=== PATIENT | female | born 1980 | race Caucasian/White ===

== ENCOUNTER → 2023-02-01 16:12 | Outpatient (CLI) | payer OTHER, SELFPAY ==
--- NOTE | ~2023-02-01 | XR_ITS ---
AP and oblique views of the SI joints MEDICAL HISTORY: Sacrococcygeal disorder FINDINGS: Bilateral SI joints are intact. Visualized hip joints are intact. No erosive or sclerotic c hange. No degenerative change. Soft tissues are unremarkable. IMPRESSION: Unremarkable exam. Reviewed, dictated and finalized at location . IMPRESSION: Unremarkable exam.
== END ==
PROVIDERS: PCP Family Medicine
DX: M53.3 Sacrococcygeal disorders, not elsewhere classified (principal)
CPT/HCPCS: 72202

== ENCOUNTER 2024-04-26 08:16 | Emergency (ER) | payer OTHER, SELFPAY ==
--- NOTE | 2024-04-26 08:18 | ED.EXTPRO ---
HPI - Extremity Problem General Chief complaint: Extremity Problem,Nontraumatic Stated complaint: Shoulder Pain and Arm Numbness Time Seen by Provider: 04/26/24 08:17 Source: patient Mode of arrival: ambulatory Limitations: no limitations History of Present Illness HPI Narrative: Patient is a 43-year-old female who presents with right shoulder pain that has increased substantially since Tuesday. States it originally started 2-3 weeks ago intermittently but now is constant. Also reports intermittent numbness and tingling to arm. 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 States she still able to move shoulder in all directions but it is painful. Patient has been taking Tylenol ibuprofen with no relief. Patient called PCP and was not able to get in until Tuesday. 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 Denies any fever, chills, nausea, vomiting, diarrhea. Related Data Home Medications Medication Instructions Recorded Confirmed multivitamin 1 tablet PO DAILY 05/08/20 07/01/23 norgestimate-ethinyl estradiol 1 tablet PO DAILY 05/08/20 07/01/23 0.18 mg/0.215mg/0.25mg-35 mcg(28)tablet (Ortho Tri-Cyclen (28)) apple cider vinegar 300 mg tablet 300 mg PO DIRECTED 06/30/22 07/01/23 fluorometholone 0.1 % eye 1 drp ophthalmic (eye) DIRECTED 04/26/24 drops,suspension Allergies Allergy/AdvReac Type Severity Reaction Status Date / Time No Known Allergies Allergy Verified 04/26/24 08:28 Review of Systems Review of Systems: All systems reviewed & are unremarkable except as noted in HPI and below Constitutional: Constitutional: Denies body ache(s), Denies chills, Denies fatigue, Denies fever(s), Denies headache(s), Denies malaise and Denies weakness Eyes: Eyes: Denies blurry vision, Denies irritation and Denies loss of vision ENT: Denies otalgia, Denies headache(s), Denies nasal discharge, Denies sinus pain and Denies sore throat Cardiovascular: Cardiovascular: Denies chest pain, Denies irregular heart rhythm and Denies dyspnea Respiratory: Respiratory: Denies dyspnea Gastrointestinal: Gastrointestinal: Denies abdominal pain, Denies melena, Denies hematochezia, Denies diarrhea, Denies nausea and Denies vomiting Musculoskeletal: Musculoskeletal: Denies back pain, Denies myalgias, Reports arthralgias, Reports numbness and Reports tingling Integumentary/Breasts: Skin/Breast: Denies pruritus and Denies rash Neurologic: Denies headache(s), Denies loss of vision and Denies weakness Psychiatric: Psychiatric: Reports no additional psychiatric complaints Endocrine: Endocrine: Denies fatigue PMFSH Past Medical History Medical History Arthritis Body mass index [BMI] 22.0-22.9, adult Family History Family History Other Carcinoma of colon Family history of coronary artery disease Family history of lung cancer Family history of malignant neoplasm of kidney Hypertension Social History Social History Smoking status: Former smoker Alcohol intake: never Comments At time of signature, agree with nursing past medical, surgical, social and family history. There is no relevant family history pertinent to the presenting complaint. Exam Const: General: cooperative, healthy appearing, comfortable, no acute distress and well nourished Nutritional Appearance: well nourished Orientation/consciousness: patient oriented x3 Limitations: no limitations HENMT: Head: normal to inspection, normocephalic and atraumatic Ears: hearing grossly normal bilaterally and external ears normal Face/Nose/Sinus: Normal external nose present, normal facial exam and face symmetric Face and sinus: normal facial exam and face symmetric Mouth: Yes lip normal Eyes: General: appearanc
[2024-04-26 08:25] VITALS: BP 144/105; PULSE 101; RESP 20; TEMP 37; O2SAT 100
== END 2024-04-26 09:10 | disposition short-term general hospital (02) ==
PROVIDERS: Emergency Provider Nurse Practitioner Family; PCP Family Medicine
DX: M25.511 Pain in right shoulder (principal); R20.0 Anesthesia of skin; R20.2 Paresthesia of skin; Z87.891 Personal history of nicotine dependence; M19.90 Unspecified osteoarthritis, unspecified site
CPT/HCPCS: 99215; G0463

== ENCOUNTER 2024-04-26 09:33 | Emergency (ER) | payer OTHER, SELFPAY ==
--- NOTE | ~2024-04-26 | XR_ITS ---
Right Shoulder Technique: AP and scapular Y views were obtained. Clinical History: Pain Findings: No fracture or dislocation is seen. Osseous alignment is anatomic. The glenohumeral and acr omioclavicular joint spaces are preserved. Soft tissues are unremarkable. Impression: Unremarkable right shoulder radiographs. Reviewed, dictated and finalized at [facility]. Impression: Unremarkable right shoulder radiographs.
[2024-04-26 09:47] VITALS: BP 157/89; PULSE 79; RESP 16; TEMP 36.7; O2SAT 100
--- NOTE | 2024-04-26 10:16 | ED.EXTPRO ---
HPI - Extremity Problem General Chief complaint: Extremity Problem,Nontraumatic Stated complaint: right arm numbness X2 days Time Seen by Provider: 04/26/24 09:45 Source: patient Mode of arrival: ambulatory Limitations: no limitations History of Present Illness HPI Narrative: 43-year-old otherwise healthy here with a complaint of right shoulder pain for past 2 days. She denies any trauma or lifting any heavy objects. Patient states pain diarrhea starts in her shoulder radiating to her arm. She denies any neck pain my Onset (ago): day(s) (2) Pain Consistency: constant Location: right Quality: aching Radiation: distal Relieving factors: nothing Exacerbating factors: nothing Associated symptoms: denies other symptoms Related Data Home Medications Medication Instructions Recorded Confirmed multivitamin 1 tablet PO DAILY 05/08/20 07/01/23 norgestimate-ethinyl estradiol 1 tablet PO DAILY 05/08/20 07/01/23 0.18 mg/0.215mg/0.25mg-35 mcg(28)tablet (Ortho Tri-Cyclen (28)) apple cider vinegar 300 mg tablet 300 mg PO DIRECTED 06/30/22 07/01/23 fluorometholone 0.1 % eye 1 drp ophthalmic (eye) DIRECTED 04/26/24 drops,suspension Allergies Allergy/AdvReac Type Severity Reaction Status Date / Time No Known Allergies Allergy Verified 04/26/24 09:33 Review of Systems Review of Systems: All systems reviewed & are unremarkable except as noted in HPI and below Constitutional: Constitutional: Reports no additional constitutional complaints Eyes: Eyes: Reports no additional eye complaints ENT: Reports system reviewed and no additional complaints, except as documented Cardiovascular: Cardiovascular: Reports no additional cardiovascular complaints Respiratory: Respiratory: Reports no additional respiratory complaints Gastrointestinal: Gastrointestinal: Reports no additional gastrointestinal complaints Musculoskeletal: Musculoskeletal: Reports as per HPI Neurologic: Reports system reviewed and no additional complaints, except as documented Endocrine: Endocrine: Reports no additional endocrine complaints Hematologic/Lymphatic: Hematologic/Lymphatic: Reports no additional hematologic/lymphatic complaints [facility] Past Medical History Medical History Arthritis Body mass index [BMI] 22.0-22.9, adult Family History Family History Other Carcinoma of colon Family history of coronary artery disease Family history of lung cancer Family history of malignant neoplasm of kidney Hypertension Social History Social History Smoking status: Former smoker Alcohol intake: never Exam Narrative: GENERAL: Well-appearing, well-nourished, and in no acute distress. She is tearful HEAD: Normocephalic, atraumatic. EYES: PERRLA and EOMI. ENT: Nares clear, no rhinorrhea or epistaxis. Mucous membranes moist. NECK: Supple. No cervical point tenderness CHEST: Clear to auscultation. No respiratory distress. HEART: Regular rate and rhythm. No murmur heard. Normal peripheral pulses. ABDOMEN: Soft, nontender, nondistended, normal active bowel sounds. EXTREMITIES: Normal range of motion. No edema. Painful ROM of the right shoulder SKIN: Warm, dry, no rash. NEURO: No focal deficits. Alert and oriented x3. PSYCH: Normal mood and affect. Course Course Emergency Course: Notified patient about I x-ray findings. Advised her to take pain medication as prescribed, follow-up with the orthopedic Vital Signs Vital signs: Vital Signs Temperature 36.7 C 04/26/24 09:47 Pulse Rate 79 04/26/24 09:47 Respiratory Rate 16 04/26/24 09:47 Blood Pressure 157/89 H 04/26/24 09:47 Pulse Oximetry 100 04/26/24 09:47 Oxygen Delivery Room Air 04/26/24 09:47 Temperature 36.7 C 04/26/24 09:47 Pulse Rate 79 04/26/24 09:47 Respiratory Rate 16
[2024-04-26] MEDS: KETOROLAC 30 MG/ML VIAL (*BKC) IM (11:21)
== END 2024-04-26 11:40 | disposition home or self-care (01) ==
PROVIDERS: Emergency Provider Family Medicine; PCP Family Medicine
DX: M25.511 Pain in right shoulder (principal)
CPT/HCPCS: 73030; 96372; 99283; J1885